=== PATIENT | female | born 1975 | race Two or more races ===

== ENCOUNTER 2017-05-21 17:05 | Emergency (ER) | payer MEDICAID ==
[~2017-05-21] VITALS: Ht 157.5 cm; Wt 68.0 kg
[2017-05-21 16:41] VITALS: BP 149/109
[~2017-05-21 17:05] MED LIST: Morphine Sulfate 4mg/ml Inj IVP ONE
[2017-05-21] MEDS ORDERED: NORCO 5-325 TA1 EACH ORAL (17:10)
--- NOTE | 2017-05-21 17:30 | Emergency Room Report ---
History of Present Illness General Chief Complaint: Upper Extremity Injury Source: Patient, EMS Present Illness HPI Patient is a 42-year-old [id number] female pain to her left shoulder. The patient reports having injury while moving her left arm and felt it pop out of joint. The patient works as a [employer]. Injury occurred before arrival. Patient denied any numbness or weakness. She reported having sharp pain worse with movement. patient is brought in by EMS Allergies: Coded Allergies: No Known Allergies (Unverified , 05/21/17) Patient History Past Medical History: asthma Last Menstrual Period: currently on period Now: No Reviewed Nursing Documentation: PMH: Agreed, PSxH: Agreed Nursing Documentation-PMH Past Medical History: No Stated History Review of Systems All Other Systems: negative except mentioned in HPI Physical Exam Vital Signs Date Time Temp Pulse Resp B/P (MAP) Pulse Ox O2 Delivery O2 Flow Rate FiO2 05/21/17 16:41 98.8 88 18 149/109 95 Room Air Sp02 EP Interpretation: reviewed, normal General Appearance: normal inspection, well appearing, no apparent distress, alert, GCS 15 Head: atraumatic ENT: normal ENT inspection, hearing grossly normal, normal voice Neck: normal inspection, full range of motion, supple, no bony tend Respiratory: normal inspection, lungs clear, normal breath sounds, no respiratory distress, no retraction, no wheezing Cardiovascular #1: regular rate, rhythm, no edema Gastrointestinal: normal inspection, normal bowel sounds, non tender, soft, no guarding, no hernia Genitourinary: no CVA tenderness Musculoskeletal: normal inspection, back normal, normal range of motion Neurologic: normal inspection, alert, oriented x3, responsive, metal hanging helper III-XII nml as tested, speech normal Psychiatric: normal inspection, judgement/insight normal, mood/affect normal Skin: normal inspection, normal color, no rash Medical Decision Making Diagnostic Impression: Primary Impression: Anterior shoulder dislocation ER Course Patient presented for left shoulder pain. Differential diagnoses included was not limited to fracture, dislocation, a.c. separation, septic joint. Patient was given morphine for pain after shoulder was reduced with axial traction. The patient reported having improvement or pain. Patient was placed in a sling. The patient is advised followup with primary care physician for orthopedic referral. She is given a note for work and started on light duty. she was given prescription for [place] for pain Last Vital Signs Date Time Temp Pulse Resp B/P (MAP) Pulse Ox O2 Delivery O2 Flow Rate FiO2 05/21/17 16:41 98.8 18 149/109 95 Room Air 05/21/17 16:41 88 Status: improved Disposition: HOME, SELF-CARE Condition: Stable Scripts Hydrocodone Bit/Acetaminophen 5-325* (NORCO 5-325*) 1 Each Tablet 1 TAB ORAL Q6H Y for For Pain, #20 TAB 0 Refills Prov: Vidal Atkinson 05/21/17 Patient Instructions: Shoulder Dislocation Vidal Atkinson May 21, 2017 17:30
[2017-05-21 18:22] VITALS: BP 113/70
--- NOTE | 2017-05-22 10:36 | Diagnostic Imaging Report ---
Indication: Left shoulder pain Technique: XRAY SHOULDER MIN 3V LEFT Comparison: None Findings: There is no acute fracture or dislocation. Bone mineralization is normal. Soft tissues are grossly unremarkable. Impression: No acute osseous abnormality.
== END 2017-05-21 18:22 | disposition home or self-care (01) ==
LOC: EDBD 17:05 → EMR 17:10
DX: S43.085A Other dislocation of left shoulder joint, initial encounter (principal); X50.9XXA Other and unspecified overexertion or strenuous movements or postures, initial encounter; Y92.89 Other specified places as the place of occurrence of the external cause
CPT/HCPCS: 29240; 73030; 96374; 96375; 99284; J2270; J2405